=== PATIENT | male | born 1930 | race Caucasian/White ===

== ENCOUNTER → 2016-11-27 | Outpatient (CLI) | payer MEDICARE, OTHER, MEDICAID ==
[~2016-11-27] MED LIST: CALTRATE 600 +1 TAB PO; DEPAKOTE500 MG PO; FOSAMAX 70MG TA70 MG PO; MOBIC15 MG PO; PREPARATION H30 GM RC; TEGRETOL 2200 MG/TA1 PO; TUSSIN DM 10 M118 ML PO; [UNRECOGNIZED DRUG - OTHER] TP
[2016-11-27 17:09] LABS: BASO % 0.5 % (0.0-2.0); EOS # 0.1 (0.0-0.7); EOS % 0.9 % (0-4.0); HEMATOCRIT 41.7 % (42.0-52.0); LYMPH # 2.5 (1.2-3.4); LYMPH % 30.1 % (20.0-51.0); MEAN CELL VOLUME 95 fl (80.0-100.0); MEAN CORPUSCULAR HEMOGLOBIN 32 pg (27.0-31.0); MEAN CORPUSCULAR HGB CONC 34 g/dl (33.0-37.0); MEAN PLATELET VOLUME 9.7 fl (7.4-10.4); MONO # 0.8 (0.1-0.6); MONO % 9.3 % (1.7-9.3); PLATELET COUNT 331 K/mm3 (130-400); WHITE BLOOD COUNT 8.5 K/mm3 (4.8-10.8)
[2016-11-27 17:10] LABS: ADJUSTED CALCIUM 9.7 mg/dL (8.4-10.2); ALBUMIN 3.6 gm/dL (3.5-5.0); BILIRUBIN,TOTAL 0.4 mg/dL (0.0-1.0); CALCIUM 9.4 mg/dL (8.4-10.2); CARBAMAZEPINE (TEGRETOL) 6.2 ug/mL (4.0-12.0); CREATININE, serum 0.73 mg/dL (0.66-1.25); POTASSIUM 4.3 mmol/L (3.4-5.0); TOTAL PROTEIN 6.3 gm/dL (6.4-8.2)
== END ==
LOC: ZCOL.LAB 16:56
PROVIDERS: Internal Medicine
DX: G40.909 Epilepsy, unspecified, not intractable, without status epilepticus (principal)

== ENCOUNTER → 2017-02-05 | Outpatient (CLI) | payer MEDICARE, OTHER, MEDICAID ==
[~2017-02-05] MED LIST changes: +ASPIRIN 81M81 MG/TA2 PO; +CALCI-MIX500 M1 PO; +COLACE 100100 MG/CAP PO; +GOOD NEIGH1200 MG/15; +MIRALAX PA17 GM/Dose PO; +NEURONTIN600 MG/TAB PO; +NORCO 325 MG-7.1 TAB PO; +PREPARATION H HYDR1% TOP; +PRESERVISIONLUT; +SENOKOT S 50 MG1 TAB PO; +TYLENOL 325MG325 MG PO
[2017-02-05 18:10] LABS: CARBAMAZEPINE (TEGRETOL) 6.8 ug/mL (4.0-12.0)
== END ==
LOC: ZCOL.LAB 17:22
PROVIDERS: Internal Medicine
DX: Z01.89 Encounter for other specified special examinations (principal)

== ENCOUNTER → 2017-02-06 | Outpatient (CLI) | payer MEDICARE, OTHER, MEDICAID ==
[~2017-02-06] MED LIST changes: -ASPIRIN 81M81 MG/TA2 PO; -CALCI-MIX500 M1 PO; -COLACE 100100 MG/CAP PO; -GOOD NEIGH1200 MG/15; -MIRALAX PA17 GM/Dose PO; -NEURONTIN600 MG/TAB PO; -NORCO 325 MG-7.1 TAB PO; -PREPARATION H HYDR1% TOP; -PRESERVISIONLUT; -SENOKOT S 50 MG1 TAB PO; -TYLENOL 325MG325 MG PO
== END ==
LOC: ZCOL.LAB 09:41
DX: G40.909 Epilepsy, unspecified, not intractable, without status epilepticus (principal)

== ENCOUNTER → 2017-09-16 | Outpatient (CLI) | payer MEDICARE, OTHER, MEDICAID ==
[~2017-09-16] MED LIST changes: +ASPIRIN 81M81 MG/TA2 PO; +CALCI-MIX500 M1 PO; +COLACE 100100 MG/CAP PO; +GOOD NEIGH1200 MG/15; +MIRALAX PA17 GM/Dose PO; +NEURONTIN600 MG/TAB PO; +NORCO 325 MG-7.1 TAB PO; +PREPARATION H HYDR1% TOP; +PRESERVISIONLUT; +SENOKOT S 50 MG1 TAB PO; +TYLENOL 325MG325 MG PO
[2017-09-16 14:02] LABS: CARBAMAZEPINE (TEGRETOL) 7.2 ug/mL (4.0-12.0)
[2017-09-16 14:03] LABS: VALPROIC ACID (DEPAKENE) 76.3 ug/mL (50.0-100.0)
== END ==
LOC: ZCOL.LAB 13:21
PROVIDERS: Internal Medicine
DX: G98.8 Other disorders of nervous system (principal); M62.81 Muscle weakness (generalized); G63 Polyneuropathy in diseases classified elsewhere; E73.9 Lactose intolerance, unspecified

== ENCOUNTER → 2017-12-15 | Outpatient (REF) | LOC: ZCOL.LAB 09:53 | DX: M81.0 Age-related osteoporosis without current pathological fracture (principal) ==

== ENCOUNTER → 2018-01-14 | Outpatient (REF) ==
[2018-01-14 14:14] LABS: BASO # 0.1 (0.0-0.2); BASO % 0.7 % (0.0-2.0); EOS # 0.3 (0.0-0.7); EOS % 3.7 % (0-4.0); GRAN # 3.7 (1.4-6.5); GRAN % 54.4 % (42.2-75.2); HEMATOCRIT 39.8 % (42.0-52.0); HEMOGLOBIN 12.9 g/dl (13.5-18.0); LYMPH # 2.2 (1.2-3.4); LYMPH % 32.3 % (20.0-51.0); MEAN CELL VOLUME 96 fl (80.0-100.0); MEAN CORPUSCULAR HEMOGLOBIN 31 pg (27.0-31.0); MEAN CORPUSCULAR HGB CONC 32 g/dl (33.0-37.0); MEAN PLATELET VOLUME 10.6 fl (7.4-10.4); MONO # 0.6 (0.1-0.6); MONO % 8.6 % (1.7-9.3); PLATELET COUNT 310 K/mm3 (130-400); RED BLOOD COUNT 4.13 M/mm3 (4.20-5.60); REDCELL DISTRIBUTION WIDTH-CV 13.5 % (11.5-14.5)
[2018-01-14 14:31] LABS: ALBUMIN 3.3 gm/dL (3.5-5.0); BILIRUBIN,TOTAL 0.4 mg/dL (0.0-1.0); CALCIUM 8.6 mg/dL (8.4-10.2); CREATININE, serum 0.48 mg/dL (0.66-1.25); POTASSIUM 4.3 mmol/L (3.4-5.0); TOTAL PROTEIN 6.2 gm/dL (6.4-8.2)
[2018-01-14 14:57] LABS: THYROID STIMULATING HORMONE 2.91 uIU/mL (0.465-4.680)
== END ==
LOC: ZCOL.LAB 13:47
PROVIDERS: Internal Medicine
DX: G98.8 Other disorders of nervous system (principal); Z86.718 Personal history of other venous thrombosis and embolism

== ENCOUNTER → 2018-04-02 | Outpatient (CLI) | payer MEDICARE, OTHER, MEDICAID ==
[2018-04-02 10:38] LABS: CARBAMAZEPINE (TEGRETOL) 5.6 ug/mL (4.0-12.0)
[2018-04-02 10:39] LABS: VALPROIC ACID (DEPAKENE) 96.5 ug/mL (50.0-100.0)
== END ==
LOC: ZCOL.LAB 09:24
PROVIDERS: Internal Medicine
DX: M81.0 Age-related osteoporosis without current pathological fracture (principal); M72.9 Fibroblastic disorder, unspecified; G40.901 Epilepsy, unspecified, not intractable, with status epilepticus

== ENCOUNTER → 2018-04-06 | Outpatient (CLI) | payer MEDICARE, OTHER, MEDICAID | LOC: ZCOL.LAB 13:49 | DX: G40.901 Epilepsy, unspecified, not intractable, with status epilepticus (principal) ==

== ENCOUNTER → 2018-06-04 | Outpatient (CLI) | payer MEDICARE, OTHER, MEDICAID ==
[2018-06-04 13:42] LABS: ALBUMIN 3.6 gm/dL (3.5-5.0); BILIRUBIN,TOTAL 0.4 mg/dL (0.0-1.0); CALCIUM 9.3 mg/dL (8.4-10.2); CREATININE, serum 0.5 mg/dL (0.66-1.25); POTASSIUM 3.9 mmol/L (3.4-5.0); TOTAL PROTEIN 6.4 gm/dL (6.4-8.2)
[2018-06-04 14:12] LABS: THYROID STIMULATING HORMONE 1.91 uIU/mL (0.465-4.680)
== END ==
LOC: ZCOL.LAB 11:53
PROVIDERS: Internal Medicine
DX: F03.90 Unspecified dementia, unspecified severity, without behavioral disturbance, psychotic disturbance, mood disturbance, and anxiety (principal); G40.901 Epilepsy, unspecified, not intractable, with status epilepticus

== ENCOUNTER → 2018-06-09 | Outpatient (REF) ==
[2018-06-09 10:58] LABS: BASO # 0.1 (0.0-0.2); BASO % 0.5 % (0.0-2.0); EOS # 0.1 (0.0-0.7); GRAN # 9.1 (1.4-6.5); GRAN % 69.7 % (42.2-75.2); HEMATOCRIT 41.9 % (42.0-52.0); HEMOGLOBIN 13.7 g/dl (13.5-18.0); LYMPH # 2.7 (1.2-3.4); LYMPH % 20.5 % (20.0-51.0); MEAN CELL VOLUME 95 fl (80.0-100.0); MEAN CORPUSCULAR HEMOGLOBIN 31 pg (27.0-31.0); MEAN CORPUSCULAR HGB CONC 33 g/dl (33.0-37.0); MEAN PLATELET VOLUME 9.4 fl (7.4-10.4); MONO % 7.5 % (1.7-9.3); PLATELET COUNT 405 K/mm3 (130-400); RED BLOOD COUNT 4.41 M/mm3 (4.20-5.60); REDCELL DISTRIBUTION WIDTH-CV 13.3 % (11.5-14.5)
== END ==
LOC: ZCOL.LAB 10:49
PROVIDERS: Internal Medicine
DX: Z01.89 Encounter for other specified special examinations (principal)

== ENCOUNTER → 2018-06-19 | Outpatient (CLI) | payer MEDICARE, OTHER, MEDICAID | LOC: COL.LAB 09:48 | DX: G40.901 Epilepsy, unspecified, not intractable, with status epilepticus (principal) ==

== ENCOUNTER → 2018-07-06 | Outpatient (CLI) | payer MEDICARE, OTHER, MEDICAID | LOC: COL.LAB 09:39 | DX: G40.901 Epilepsy, unspecified, not intractable, with status epilepticus (principal) ==

== ENCOUNTER → 2018-09-01 | Outpatient (CLI) | payer MEDICARE, OTHER, MEDICAID | LOC: ZCOL.LAB 11:28 | DX: G40.901 Epilepsy, unspecified, not intractable, with status epilepticus (principal) ==

== ENCOUNTER → 2018-10-01 | Outpatient (CLI) | payer MEDICARE, OTHER, MEDICAID | LOC: COL.LAB 09:08 | DX: G40.901 Epilepsy, unspecified, not intractable, with status epilepticus (principal); F03.90 Unspecified dementia, unspecified severity, without behavioral disturbance, psychotic disturbance, mood disturbance, and anxiety; M62.81 Muscle weakness (generalized) ==

== ENCOUNTER 2018-10-20 09:11 | Emergency (ER) | payer MEDICARE, OTHER, MEDICAID ==
[~2018-10-20] VITALS: Ht 167.6 cm; Wt 72.7 kg
[2018-10-20 09:16] VITALS: TEMP 97.3
[2018-10-20 09:35] LABS: BASO # 0.1 (0.0-0.2); BASO % 0.5 % (0.0-2.0); EOS # 0.1 (0.0-0.7); EOS % 1.1 % (0-4.0); GRAN # 7.5 (1.4-6.5); GRAN % 69.7 % (42.2-75.2); HEMATOCRIT 39.8 % (42.0-52.0); HEMOGLOBIN 13.8 g/dl (13.5-18.0); LYMPH # 2.4 (1.2-3.4); MEAN CELL VOLUME 89 fl (80.0-100.0); MEAN CORPUSCULAR HEMOGLOBIN 31 pg (27.0-31.0); MEAN CORPUSCULAR HGB CONC 35 g/dl (33.0-37.0); MEAN PLATELET VOLUME 8.5 fl (7.4-10.4); MONO # 0.7 (0.1-0.6); MONO % 6.1 % (1.7-9.3); PLATELET COUNT 334 K/mm3 (130-400); RED BLOOD COUNT 4.45 M/mm3 (4.20-5.60); REDCELL DISTRIBUTION WIDTH-CV 12.8 % (11.5-14.5)
[2018-10-20 09:40] LABS: INR 1.1 (0.8-3.0); PROTHROMBIN TIME 12.7 SECONDS (9.7-12.8)
[2018-10-20 09:48] LABS: ALANINE AMINOTRANSFERASE 16 U/L (21-72); ALKALINE PHOSPHATASE 117 U/L (50-136); ANION GAP 13 mmol/L (7-16); AST,SGOT 24 U/L (15-37); BILIRUBIN,TOTAL 0.3 mg/dL (0.0-1.0); BLOOD UREA NITROGEN 12 mg/dL (9-20); CARBON DIOXIDE 25 mmol/L (22-30); CHLORIDE 93 mmol/L (98-107); CREATININE, serum 0.41 (0.66-1.25); GLUCOSE 114 mg/dL (74-106); POTASSIUM 4.1 mmol/L (3.4-5.0); SODIUM 131 mmol/L (137-145)
[2018-10-20 10:02] LABS: PROLACTIN 37.6 ng/mL (3.7-17.9); TROPONIN-I < 0.012 ng/mL (0.000-0.035)
[2018-10-20 13:58] VITALS: BP 129/79; PULSE 95
== END 2018-10-20 14:18 | disposition home or self-care (01) ==
LOC: COL.ER 09:11
PROVIDERS: Emergency Medicine
DX: R53.1 Weakness (principal); F03.90 Unspecified dementia, unspecified severity, without behavioral disturbance, psychotic disturbance, mood disturbance, and anxiety; G40.909 Epilepsy, unspecified, not intractable, without status epilepticus; Z79.82 Long term (current) use of aspirin
CPT/HCPCS: J7030

== ENCOUNTER → 2018-10-28 | Outpatient (CLI) | payer MEDICARE, OTHER, MEDICAID | LOC: ZCOL.LAB 16:07 | DX: G40.901 Epilepsy, unspecified, not intractable, with status epilepticus (principal) ==

== ENCOUNTER → 2018-11-04 | Outpatient (CLI) | payer MEDICARE, OTHER, MEDICAID ==
[2018-11-04 13:20] LABS: CARBAMAZEPINE (TEGRETOL) 9.3 ug/mL (4.0-12.0)
[2018-11-04 13:24] LABS: VALPROIC ACID (DEPAKENE) < 10.0 ug/mL (50.0-100.0)
== END ==
LOC: COL.LAB 12:08
PROVIDERS: Internal Medicine
DX: Z51.81 Encounter for therapeutic drug level monitoring (principal); E72.20 Disorder of urea cycle metabolism, unspecified; E55.9 Vitamin D deficiency, unspecified; T42.1X4A Poisoning by iminostilbenes, undetermined, initial encounter

== ENCOUNTER 2019-02-01 21:14 | Inpatient (IN) | payer MEDICARE, OTHER, MEDICAID ==
[~2019-02-01] VITALS: Ht 167.6 cm; Wt 83.4 kg
[2019-02-01 21:45] LABS: ARTERIAL BLD GAS O2 SATURATION 91.6 % (92-100); ARTERIAL BLOOD GAS BASE EXCESS -0.3 (-2-2); ARTERIAL BLOOD GAS HCO3 22.1 meq/L (22-26); ARTERIAL BLOOD GAS PCO2 29.6 mmHg (35-45); ARTERIAL BLOOD GAS PO2 59.1 mmHg (80-100); ARTERIAL BLOOD GAS pH 7.49 (7.35-7.45)
[2019-02-01] MEDS ORDERED: BENADRYL25 M2 PO (21:59)
[2019-02-01] MEDS ORDERED: HORIZANT600 MG PO (22:00)
[2019-02-01 22:02] LABS: HEMOGLOBIN 11.5 g/dl (13.5-18.0); MEAN CELL VOLUME 88 fl (80.0-100.0); MEAN CORPUSCULAR HEMOGLOBIN 30 pg (27.0-31.0); MEAN CORPUSCULAR HGB CONC 34 g/dl (33.0-37.0); MEAN PLATELET VOLUME 8.8 fl (7.4-10.4); PLATELET COUNT 352 K/mm3 (130-400); REDCELL DISTRIBUTION WIDTH-CV 14.1 % (11.5-14.5)
[2019-02-01] MEDS ORDERED: ERGOCALCIFER50000 IU PO (22:05)
[2019-02-01] MEDS ORDERED: CORRECTIVE LAXAT5 MG PO (22:07)
[2019-02-01] MEDS ORDERED: CALAMINE 180 M180 ML TP (22:08)
[2019-02-01] MEDS ORDERED: SENOKOT S 50 MG1 TAB PO (22:08)
[2019-02-01] MEDS ORDERED: MIRALAX PA17 GM/Dose PO (22:08)
[2019-02-01 22:09] LABS: INR 1.2 (0.8-3.0); PROTHROMBIN TIME 13.8 SECONDS (9.7-12.8)
[2019-02-01] MEDS ORDERED: GERI-TUSSI100 MG/5 M PO (22:09)
[2019-02-01] MEDS ORDERED: FOSAMAX 70MG TA70 MG PO (22:09)
[2019-02-01 22:14] LABS: ALBUMIN 3.6 gm/dL (3.5-5.0); BILIRUBIN,TOTAL 0.5 mg/dL (0.0-1.0); CALCIUM 8.7 mg/dL (8.4-10.2); CREATININE, serum 0.42 (0.66-1.25); HEMATOCRIT 33.5 % (42.0-52.0); TOTAL PROTEIN 7.1 gm/dL (6.4-8.2)
[2019-02-01 22:24] LABS: TROPONIN-I 0.012 ng/mL (0.000-0.035)
[2019-02-01 22:28] LABS: LYMPHOCYTE 9 % (20.0-51.0); METAMYELOCYTE 1 % (0-0); NEUTROPHILS 84 % (42.0-75.2)
[2019-02-01 22:29] LABS: PLATELET ESTIMATE NORMAL (NORMAL)
[2019-02-02] VITALS (7 sets, daily range): BP systolic 104–135; BP diastolic 52–67; PULSE 82–114; TEMP 98–100.9
--- NOTE | 2019-02-02 00:05 | NUR ---
Admitted to medical floor from ER with DX; pneumonia, pt alert, pleasant, oriented to person, place- from [facility]-- has o2 at 6L/nc, sats 93%, lung sounds with coarse crackles throughout- wet cough_pt states unable to cough anything up- Kae WILKINS here to see pt and write orders, pt is resting between interruptions- was incontinent of urine- changed- bed alarm on- fall precautions-
[2019-02-02] MEDS ORDERED: CALCIUM CARB500 MG PO (00:25)
[2019-02-02] MEDS ORDERED: DULCOLAX TAB5 MG PO (00:29)
[2019-02-02] MEDS ORDERED: EUCERIN1 CRE TOP (00:30)
[2019-02-02 02:44] LABS: ARTERIAL BLD GAS O2 SATURATION 96.2 % (92-100); ARTERIAL BLD GAS TCO2 CT 22.4; ARTERIAL BLOOD GAS HCO3 21.4 meq/L (22-26); ARTERIAL BLOOD GAS PCO2 31.9 mmHg (35-45); ARTERIAL BLOOD GAS PO2 86.4 mmHg (80-100); ARTERIAL BLOOD GAS pH 7.44 (7.35-7.45)
[2019-02-02 04:19] LABS: COLLECTION METHOD CLEAN CATCH
[2019-02-02 04:29] LABS: MUCOUS Present /lpf; PH 5 (5-8); SQUAMOUS EPITHELIAL None Seen /hpf; URINE APPEARANCE Cloudy; URINE BACTERIA None Seen /hpf; URINE BILIRUBIN Negative (NEGATIVE); URINE BLOOD Negative (NEGATIVE); URINE COLOR Amber; URINE GLUCOSE Negative (NEGATIVE); URINE KETONE Trace (NEGATIVE); URINE LEUKOCYTE ESTERASE 3+ (NEGATIVE); URINE NITRATE Negative (NEGATIVE); URINE PROTEIN(semi-quant) 1+ (NEGATIVE); URINE UROBILINOGEN Negative (NEGATIVE)
--- NOTE | 2019-02-02 05:32 | NUR ---
Has been resting well for the past 3-4 hours- tolerated bipap till about 0430, was anxious and pulling off so took off and has o2 mask with 6L/nc. VSS. IV fluids continue at 75cc/hr. Was incontinent of urine but was able to catch some in urinal so sent down to lab for Tests that were ordered. Denies pain. More confused during the night -
[2019-02-02 06:11] LABS: MEAN CELL VOLUME 90 fl (80.0-100.0); MEAN CORPUSCULAR HGB CONC 33 g/dl (33.0-37.0); MEAN PLATELET VOLUME 8.7 fl (7.4-10.4); PLATELET COUNT 326 K/mm3 (130-400); REDCELL DISTRIBUTION WIDTH-CV 14.2 % (11.5-14.5)
[2019-02-02 06:13] LABS: HEMATOCRIT 29.7 % (42.0-52.0); HEMOGLOBIN 9.9 g/dl (13.5-18.0); MEAN CORPUSCULAR HEMOGLOBIN 30 pg (27.0-31.0)
--- NOTE | 2019-02-02 06:15 | NUR ---
Vancomycin Initial Dosing Pharmacy Note Ordering provider: Kemal Rosales MD Indication/duration: Pneumonia, 7 days LABS: WBC 19.8, SCr 0.42, CrCl~60, GFR 193 Recommendation: Vancomycin 1.5 gm IV q12h. Pharmacy will continue to monitor and check a Vancomycin trough on 02/04/19. Loading dose: 1.5 grams Maintenance dose: 1.5 grams every 12 hours Trough goal: 15-20 ug/mL
[2019-02-02 06:25] LABS: ALBUMIN 3.1 gm/dL (3.5-5.0); BILIRUBIN,TOTAL 0.6 mg/dL (0.0-1.0); CALCIUM 8.1 mg/dL (8.4-10.2); CREATININE, serum 0.43 (0.66-1.25); POTASSIUM 3.6 mmol/L (3.4-5.0); TOTAL PROTEIN 6.2 gm/dL (6.4-8.2)
[2019-02-02 06:40] LABS: LYMPHOCYTE 14 % (20.0-51.0); NEUTROPHILS 82 % (42.0-75.2); PLATELET ESTIMATE NORMAL (NORMAL)
--- NOTE | 2019-02-02 11:18 | NUR ---
YARON met with the patient to discuss discharge plan. The patient resides at [facility] for long-term care. He states that he utilizes a wheelchair and oxygen at the facility. The patient's PCP was Dr. Gibson, but he states that he will be switching to Dr. Nicole Newman. The patient does not have advanced directives in EMR, but he states that he believes he has them completed and this his sister, Rodríguez Rust (ph#[phone]), is his DPOA-HC. He states that Rodríguez lives in [place]. The patient reports that he plans to return back to [facility] upon discharge. YARON presented and explained the Patient Choice Form to the Patient. The patient verbalized understanding, signed, and he declined a copy. YARON contacted and requested a copy of the patient's DPOA-HC from Estrella at [facility]. YARON faxed updates to Saad at [facility]. YARON to continue to follow.
--- NOTE | 2019-02-02 18:33 | NUR ---
PT HAD UNEVENTFUL DAY. RECIEVED IV ABX WITHOUT ISSUE. ECHO WAS DONE THIS AM, REPORT ON CHART. NO ISSUES OR CONSERN VOICED. PLEASENT AND COOPERATIVE WITH CARES.
[2019-02-03] VITALS (16 sets, daily range): BP systolic 114–140; BP diastolic 52–77; PULSE 58–110; TEMP 97.6–99.1
[2019-02-03 06:09] LABS: HEMOGLOBIN 10.4 g/dl (13.5-18.0); MEAN CELL VOLUME 90 fl (80.0-100.0); MEAN CORPUSCULAR HEMOGLOBIN 30 pg (27.0-31.0); MEAN CORPUSCULAR HGB CONC 34 g/dl (33.0-37.0); MEAN PLATELET VOLUME 9.1 fl (7.4-10.4); PLATELET COUNT 379 K/mm3 (130-400); RED BLOOD COUNT 3.43 M/mm3 (4.20-5.60); REDCELL DISTRIBUTION WIDTH-CV 14.5 % (11.5-14.5)
[2019-02-03 06:21] LABS: CALCIUM 8.1 mg/dL (8.4-10.2); CREATININE, serum 0.4 (0.66-1.25); POTASSIUM 3.7 mmol/L (3.4-5.0)
[2019-02-03 06:32] LABS: HEMATOCRIT 30.9 % (42.0-52.0)
--- NOTE | 2019-02-03 07:23 | NUR ---
Pt had a miserable night. Increased audible wheezing. Occas non-productive cough. RT put his Bipap on at HS but pt was restless since that time. Pulled on mask and hose and would get upset that the bipap would not work right. This morning, he appears to be tired. O2 on at 8L/NC per RT. Rest in bed with head slightly elevated. Call light within reach. IV antibiotics given thru INT in L FA with no problems. Report given to day shift.
[2019-02-03 09:38] LABS: BAND 9 % (0-10); EOSINOPHIL 1 % (0-4); LYMPHOCYTE 4 % (20.0-51.0); METAMYELOCYTE 1 % (0-0); NEUTROPHILS 78 % (42.0-75.2)
[2019-02-03 09:39] LABS: PLATELET ESTIMATE NORMAL (NORMAL)
--- NOTE | 2019-02-03 13:17 | NUR ---
PATIENT HAS SECRETIONS IN UPPER AIRWAY BUT HAS STONG COUGH, SATS 85-87 ON 8LPM VIA OXYMASK.
--- NOTE | 2019-02-03 13:36 | NUR ---
RT ASSESSED PT O2 AND GAVE BREATHING TX. PT O2 SATS REMAINED IN THE UPPER 80'S. KIRILL ABGS AND PLACED PT ON BIPAP AT THIS TIME. PT COOPERATIVE AND VOICED UNDERSTANDING. WILL MONITOR PT
--- NOTE | 2019-02-03 13:38 | NUR ---
YARON contacted and faxed updates to Saad at [facility]. YARON to continue to follow.
--- NOTE | 2019-02-03 14:10 | NUR ---
PT TOLERATING BIPAP WELL AT THIS TIME. NOTIFIED DR. DOWNEY OF PT BEING ON BIPAP AND GAVE HIM THE ABG RESULTS. NO NEW ORDERS AT THIS TIME. WILL CONTINUE TO MONITOR
[2019-02-03 14:13] LABS: ARTERIAL BLD GAS O2 SATURATION 86.4 % (92-100); ARTERIAL BLD GAS TCO2 CT 26.3; ARTERIAL BLOOD GAS BASE EXCESS 3.5 (-2-2); ARTERIAL BLOOD GAS HCO3 25.4 meq/L (22-26); ARTERIAL BLOOD GAS pH 7.55 (7.35-7.45)
[2019-02-03 14:16] LABS: ARTERIAL BLOOD GAS PO2 47.9 mmHg (80-100)
[2019-02-03 15:51] LABS: ARTERIAL BLD GAS O2 SATURATION 92.9 % (92-100); ARTERIAL BLOOD GAS BASE EXCESS 0.9 (-2-2); ARTERIAL BLOOD GAS HCO3 23.1 meq/L (22-26); ARTERIAL BLOOD GAS PO2 62.2 mmHg (80-100); ARTERIAL BLOOD GAS pH 7.52 (7.35-7.45)
--- NOTE | 2019-02-03 15:51 | NUR ---
PT ASLEEEP WITH BIPAP ON AT THIS TIME. ABG'S WHERE REDRAWN AFTER PT WEARING BIPAP FOR 2 HOURS TO SEE IF ABG'S CLOSER/WNL.
--- NOTE | 2019-02-03 17:30 | NUR ---
PATIENT RESTING COMFORTABLY, BIPAP ON NOW SINCE ABOUT 1330. ABG SHOWS IMPROVEMENT IN PAO2, AND SATS 93% UP FROM 84% ON 10 LPM VIA OXYMASK. WILL CONTINUE TO MONITOR.
--- NOTE | 2019-02-03 17:49 | NUR ---
PT AWOKE FROM NAP AND REQUESTED TO BE OFF BIPAP. THIS NURSE CALLED RT, PT WAS PLACED ON 10L OXIMASK AND SATS 92%.
--- NOTE | 2019-02-03 17:57 | NUR ---
BIPAP OFF AT 1720 PATIENT ON 10 LPM VIA OXYMASK WITH SATURATION OF 92%.
--- NOTE | 2019-02-03 22:34 | NUR ---
When giving HS medications, this nurse noticed patient to be very diaphoretic. VS: 97.6 120 132/82 34 96% on BIPAP. Telemetry shows sinus tachycardia. Asked if patient was having chest pain, and stated he was, but "just a little." Continues to have difficulty breathing with BIPAP. Called to [facility]. New orders received. Called respiratory to obtain EKG and ABGs stat. Called lab to obtain Troponin stat. Given 1 mg Morphine IV per orders.
[2019-02-03 22:57] LABS: ARTERIAL BLD GAS O2 SATURATION 96.3 % (92-100); ARTERIAL BLD GAS TCO2 CT 27.2; ARTERIAL BLOOD GAS BASE EXCESS 3.7 (-2-2); ARTERIAL BLOOD GAS HCO3 26.2 meq/L (22-26); ARTERIAL BLOOD GAS PCO2 32.9 mmHg (35-45); ARTERIAL BLOOD GAS PO2 82.1 mmHg (80-100); ARTERIAL BLOOD GAS pH 7.52 (7.35-7.45)
[2019-02-04 01:58] LABS: BASO # 0.1 (0.0-0.2); BASO % 0.3 % (0.0-2.0); EOS % 0.2 % (0-4.0); GRAN # 14.9 (1.4-6.5); GRAN % 78.4 % (42.2-75.2); HEMOGLOBIN 10.6 g/dl (13.5-18.0); LYMPH # 1.9 (1.2-3.4); LYMPH % 10.2 % (20.0-51.0); MEAN CELL VOLUME 90 fl (80.0-100.0); MEAN CORPUSCULAR HEMOGLOBIN 30 pg (27.0-31.0); MEAN CORPUSCULAR HGB CONC 34 g/dl (33.0-37.0); MEAN PLATELET VOLUME 8.9 fl (7.4-10.4); MONO # 1.3 (0.1-0.6); MONO % 6.6 % (1.7-9.3); PLATELET COUNT 413 K/mm3 (130-400); RED BLOOD COUNT 3.51 M/mm3 (4.20-5.60); REDCELL DISTRIBUTION WIDTH-CV 14.5 % (11.5-14.5)
[2019-02-04 02:02] LABS: HEMATOCRIT 31.6 % (42.0-52.0)
[2019-02-04 02:09] LABS: ANION GAP 9 mmol/L (7-16); BLOOD UREA NITROGEN 17 mg/dL (9-20); CALCIUM 8.7 mg/dL (8.4-10.2); CARBON DIOXIDE 26 mmol/L (22-30); CHLORIDE 100 mmol/L (98-107); CREATININE, serum 0.49 (0.66-1.25); GLUCOSE 126 mg/dL (74-106); POTASSIUM 3.9 mmol/L (3.4-5.0); SODIUM 135 mmol/L (137-145)
[2019-02-04 02:25] LABS: TROPONIN-I < 0.012 ng/mL (0.000-0.035)
[2019-02-04 02:52] VITALS: BP 130/64; PULSE 96; TEMP 98.8
--- NOTE | 2019-02-04 08:16 | NUR ---
Pt has had a rough night. Sats drop when bipap is taken off or when he is moved from side to side to change bedding. IV infiltrated in L FA and new site started in R wrist with #20 on third attempt. Top set of dentures loose in pt mouth. RT aware of the pt teeth. Call light in reach.
--- NOTE | 2019-02-04 08:27 | NUR ---
Pt back from procedure with mom at bedside. Pt A&O, VSS, on post ops. Pt will go down to radiology in about 30 min.
[2019-02-04 08:48] VITALS: BP 134/68; PULSE 105; TEMP 98
--- NOTE | 2019-02-04 09:14 | NUR ---
SW attempted to contact and update the patient's sister, Rodríguez Rust ([phone]). SW left a voicemail and will continue to follow.
--- NOTE | 2019-02-04 09:36 | NUR ---
Morning medications administered per JUL. Pt currently having PICC line placed.
--- NOTE | 2019-02-04 10:46 | NUR ---
YARON attended clinical rounds. The patient remains on a bipap. The patient's sister, Fanta, then contacted YARON during rounds. YARON updated Fanta. Fanta confirmed that the plan for the patient is to return back to [facility] upon discharge and that she is the patient's DPOA-HC. Fanta plans to email the patient's DPOA-HC to YARON. YARON to fax updates to [facility] and will continue to follow.
--- NOTE | 2019-02-04 11:17 | NUR ---
Vancomycin Follow-up Pharmacy Note Current regimen: Vancomcyin 1.5 gm IV q12h Vancomycin trough: 10.62 Adjustments: Vancomycin trough subtherapeutic for goal of ~15-20 for PNA. Will increase Vancomcyin to 1.5 gm IV q8h and check trough prior to 4th new dose on 02/05/19. Pharmacy will continue to monitor.
[2019-02-04 12:27] VITALS: BP 122/60; PULSE 93; TEMP 99
--- NOTE | 2019-02-04 12:40 | NUR ---
Pt assessment completed and charted. Pt has PICC line in place, both lines flush with good blood return. Vanc trough drawn prior to Vanc administration. This nurse contacted pharmacy in regards to administration. Dose ok'd to give. Pharmacy to edit next dose instructions. Pt denies chest pain, dizziness, N/V. Pt SOB. Pt on bipap this morning when this nurse resumed cares. RT gave breathing tx, took pt off bipap and placed 10L oxymask to give pt break. pt satting mid 90s. Pt assisted in eating by aide. No other concerns voiced at this time. Call light within reach.
--- NOTE | 2019-02-04 14:50 | NUR ---
SW received the patient's DPOA-HC, via email. SW placed in the patient's chart. The patient's DPOA-HC is his sister, Rodríguez Rust, and the alternate is Taz Rust (ph#[phone]).
[2019-02-04 16:49] VITALS: BP 127/70; PULSE 93; TEMP 97.2
--- NOTE | 2019-02-04 17:17 | NUR ---
Pt sitting in recliner, dinner ordered per pt. Pt on 10L oxymask, satting at 98%. Denies pain or other concerns at this time. Zosyn running in PICC per MAR with no complications. Call light within reach.
[2019-02-04 19:36] VITALS: BP 111/51; PULSE 104; TEMP 99.1
--- NOTE | 2019-02-04 20:45 | NUR ---
Patient assessed at this time. Alert and oriented x 4. Denies having pain and discomfort. Double lumen PICC to E. Both ports flushed. Dressing to area is CDI. Patient assisted from recliner to bed with two assist. Very unsteady pivot transfers. Shaking/tremors present. On oxygen at 10 L/min via oxymask. Reports SOB has gotten better. Denies SOB and dyspnea at rest. LS coarse crackles throughout. HRR. Telemetry monitoring in place. BSAx4. Abdomen soft and non-tender. 2+ edema BLE. Patient was incontinent of bowel and bladder. Staff assisted with changing and perineal hygiene care. Voices no questions, needs, or concerns at this time. Resting in bed with call light within reach.
[2019-02-04 23:38] VITALS: BP 129/72; PULSE 99; TEMP 100.8
[2019-02-05 03:02] VITALS: BP 129/62; PULSE 101; TEMP 99.4
--- NOTE | 2019-02-05 05:26 | NUR ---
Patient has been wearing BIPAP throughout the night. Has voiced no complaints of pain or discomfort. Voices no questions, needs, or concerns. Continues on IV antibiotics via PICC to LUE. Resting in bed with eyes closed at this time. Call light is within reach.
[2019-02-05 06:19] LABS: BASO % 0.2 % (0.0-2.0); EOS # 0.2 (0.0-0.7); EOS % 0.8 % (0-4.0); GRAN # 15.2 (1.4-6.5); GRAN % 84.6 % (42.2-75.2); HEMOGLOBIN 10.2 g/dl (13.5-18.0); LYMPH # 1.1 (1.2-3.4); LYMPH % 5.9 % (20.0-51.0); MEAN CELL VOLUME 91 fl (80.0-100.0); MEAN CORPUSCULAR HEMOGLOBIN 30 pg (27.0-31.0); MEAN CORPUSCULAR HGB CONC 33 g/dl (33.0-37.0); MEAN PLATELET VOLUME 9.4 fl (7.4-10.4); MONO # 0.9 (0.1-0.6); MONO % 4.7 % (1.7-9.3); PLATELET COUNT 431 K/mm3 (130-400); RED BLOOD COUNT 3.45 M/mm3 (4.20-5.60); REDCELL DISTRIBUTION WIDTH-CV 14.6 % (11.5-14.5)
[2019-02-05 06:21] LABS: CALCIUM 8.7 mg/dL (8.4-10.2); CREATININE, serum 0.42 (0.66-1.25); POTASSIUM 3.5 mmol/L (3.4-5.0)
[2019-02-05 06:28] LABS: HEMATOCRIT 31.4 % (42.0-52.0)
--- NOTE | 2019-02-05 07:58 | NUR ---
Pt assessment completed and charted. Student nurse Jose is caring for patient this morning w/ instructor. Morning medications administered per MAR by student nurse and instructor. Pt sitting up in bed eating breakfast. Pt on 10L oxymask. Denies chest pain, dizziness, N/V. Voices no concerns at this time. Call light within reach.
[2019-02-05 08:03] VITALS: BP 122/101; PULSE 95; TEMP 97.4
--- NOTE | 2019-02-05 11:17 | NUR ---
Vancomycin Follow-up Pharmacy Note Current regimen: 1.5 g IV q8h Vancomycin trough: 33.23 Adjustments: hold vancomycin until 0700 on 02/06/19, restart at 1.25 g IV q12h, recheck trough on 02/07/19 at 0630
--- NOTE | 2019-02-05 11:30 | NUR ---
Critical value Alice burr called to this nurse. Pharmacy and hospitalist aware, Alice de la rosa. New dosing and schedule ordered.
[2019-02-05 13:20] VITALS: PULSE 96; TEMP 97.4
[2019-02-05 13:25] VITALS: BP 121/56; PULSE 98
--- NOTE | 2019-02-05 13:45 | NUR ---
Primary nurse was assisted with [id number] patient care by [employer] ADN student Ariana Vale and [facility] instructor Jie Somers RN-.
--- NOTE | 2019-02-05 13:45 | NUR ---
YARON contacted and faxed updates to Saad at [facility]. YARON to continue to follow.
--- NOTE | 2019-02-05 13:59 | NUR ---
Reported off to EARNEST Dyer. Patient sitting up in bed watching tv, call light in reach, bed in lowest position. Paitent voices no other concerns at this time.
[2019-02-05 16:58] VITALS: BP 150/70; PULSE 112; TEMP 98.6
[2019-02-05 19:09] VITALS: BP 121/86; PULSE 109; TEMP 99.5
--- NOTE | 2019-02-05 19:30 | NUR ---
Patient assessed at this time. Alert and oriented, and able to make needs known. Denies having pain and discomfort at this time. Double lumen PICC to RUE. Both ports flushed. Dressing to area is CDI. LS fine crackles in upper lobes, diminished in lower lobes. On oxygen at 10 L/min via oxymask. Reports decreased SOB, and denies at rest, but reports SOB with exertion. Occasional moist cough, unable to produce sputum. wire bender hand in place, sinus tachycardia. Capillary refill less than 3 second. Non-tenting skin turgr. BSAx4. Abdomen soft and non-tender. Complained of too many stools today. Held scheduled Colace and Senokot per request. Scab to top of head on right side. High fall risk precautions are in place. Patient denies having any questions, needs, or concerns at this time. Resting in bed with call light within reach.
[2019-02-06 00:34] VITALS: BP 119/56; PULSE 95; TEMP 99
[2019-02-06 04:21] VITALS: BP 128/63; PULSE 84; TEMP 97.8
--- NOTE | 2019-02-06 06:24 | NUR ---
Patient has been resting in bed with eyes closed. Has denied having pain and discomfort. Voices no questions, needs, or concerns at this time. Continues on IV antibiotics and solu-medrol per MD orders. Has been wearing BIPAP. Resting in bed with call light within reach.
[2019-02-06 06:58] LABS: MEAN CELL VOLUME 91 fl (80.0-100.0); MEAN CORPUSCULAR HGB CONC 33 g/dl (33.0-37.0); MEAN PLATELET VOLUME 8.9 fl (7.4-10.4); PLATELET COUNT 484 K/mm3 (130-400); RED BLOOD COUNT 3.23 M/mm3 (4.20-5.60); REDCELL DISTRIBUTION WIDTH-CV 14.8 % (11.5-14.5)
[2019-02-06 07:10] LABS: CALCIUM 8.9 mg/dL (8.4-10.2); CREATININE, serum 0.76 (0.66-1.25); POTASSIUM 3.5 mmol/L (3.4-5.0)
[2019-02-06 07:40] LABS: HEMATOCRIT 29.3 % (42.0-52.0); HEMOGLOBIN 9.7 g/dl (13.5-18.0); MEAN CORPUSCULAR HEMOGLOBIN 30 pg (27.0-31.0)
--- NOTE | 2019-02-06 08:00 | NUR ---
Initial: Pt laying in bed. No complaints of pain or discomfort. Call light placed within pt reach, and says he does not need anything at this time.
[2019-02-06 08:55] VITALS: BP 132/47; PULSE 97; TEMP 97.5
[2019-02-06 10:12] LABS: LYMPHOCYTE 9 % (20.0-51.0); NEUTROPHILS 84 % (42.0-75.2); PLATELET ESTIMATE INCREASED (NORMAL)
[2019-02-06 11:48] VITALS: BP 124/60; PULSE 96; TEMP 99.2
[2019-02-06 16:13] VITALS: BP 150/73; PULSE 113; TEMP 98.6
--- NOTE | 2019-02-06 18:57 | NUR ---
Report given to Cherie. Pt lying in bed, complains of bipap fitting too snug. RT was coming in to give a breathing treatment and noted they would fix the fit. Pt does not complain of pain or discomfort. States he does not need anything at this time. No other concerns.
[2019-02-06 20:35] VITALS: BP 120/64; PULSE 97; TEMP 98.5
--- NOTE | 2019-02-06 22:00 | NUR ---
Report received from EARNEST Contreras. Patient resting in bed. Denies any pain at this time. Assessment complete. Alert and partially oriented. Currently wearing CPAP machine. 10 L O2. IV patent, vanco started. Denies any further needs at this time. Call light within reach.
[2019-02-07 00:13] VITALS: BP 135/72; PULSE 93; TEMP 98
[2019-02-07 05:13] VITALS: BP 144/62; PULSE 94; TEMP 97.8
--- NOTE | 2019-02-07 05:32 | NUR ---
Patient had uneventful night. Resting in bed. One episode of elevated heart rate, but returned to normal. Patient had bowel movement, chux, brief, and new gown given. Denied pain throughout shift. No further needs at this time. Call light within reach.
--- NOTE | 2019-02-07 06:51 | NUR ---
Report given to EARNEST Lama
[2019-02-07 07:06] LABS: BASO % 0.2 % (0.0-2.0); EOS % 0.2 % (0-4.0); GRAN % 88.5 % (42.2-75.2); LYMPH # 1.4 (1.2-3.4); LYMPH % 6.5 % (20.0-51.0); MEAN CELL VOLUME 92 fl (80.0-100.0); MEAN CORPUSCULAR HGB CONC 32 g/dl (33.0-37.0); MONO # 0.7 (0.1-0.6); MONO % 3.3 % (1.7-9.3); PLATELET COUNT 503 K/mm3 (130-400); REDCELL DISTRIBUTION WIDTH-CV 14.9 % (11.5-14.5)
[2019-02-07 07:13] LABS: HEMATOCRIT 30.3 % (42.0-52.0); HEMOGLOBIN 9.8 g/dl (13.5-18.0); MEAN CORPUSCULAR HEMOGLOBIN 30 pg (27.0-31.0)
[2019-02-07 07:17] VITALS: BP 146/68; PULSE 99; TEMP 98.8
[2019-02-07 07:20] LABS: CALCIUM 9.3 mg/dL (8.4-10.2); CREATININE, serum 0.62 (0.66-1.25); POTASSIUM 3.5 mmol/L (3.4-5.0)
--- NOTE | 2019-02-07 08:28 | NUR ---
Pt assessment complete. Pt is sitting up in bed just finished eating breakfast, pt ate without complications. His breathing is tachy, he reports SOB with movement. Continues on 10L O2 via OM. Pt denies any pain. No N/V. Incontinent cares provided. Seizure and fall precautions in place. No needs at this time. Call light within reach.
--- NOTE | 2019-02-07 11:00 | NUR ---
YARON faxed updates to Saad at [facility]. volunteer services director will continue to follow.
[2019-02-07 12:52] VITALS: BP 138/62; PULSE 95; TEMP 98.1
[2019-02-07 17:46] VITALS: BP 100/52; PULSE 99; TEMP 98.5
--- NOTE | 2019-02-07 19:07 | NUR ---
Pt remained on 10L O2 via OM through the day. Pt extremely intolerant of any movement, quickly desat's. Pt repositioned through the day in bed. Incontinent cares provided. No pain through the day. Refusing dinner tonight. Call light within reach, report given to EARNEST Mcnamara.
[2019-02-07 20:31] VITALS: BP 124/52; PULSE 102; TEMP 97.5
--- NOTE | 2019-02-07 22:30 | NUR ---
Shift assessment complete. Patient in bed, awake. On BIPAP. Partially oriented. Denies pain. Denies further needs at this time. Will continue to monitor.
[2019-02-08 00:17] VITALS: BP 143/68; PULSE 94; TEMP 98.5
[2019-02-08 05:13] VITALS: BP 152/83; PULSE 89; TEMP 97.6
--- NOTE | 2019-02-08 05:27 | NUR ---
Patient in bed, awake. Denies pain. Incontinent of bowel/bladder. Marichuy-care provided, partial linen change. Groin noted to be reddened, painful, and dry. Barrier cream applied. Brief loosely attached d/t excoriated groin. Denies further needs at this time. Will continue to monitor.
[2019-02-08 05:44] LABS: BASO % 0.1 % (0.0-2.0); EOS % 0.1 % (0-4.0); GRAN % 88.9 % (42.2-75.2); LYMPH # 1.3 (1.2-3.4); LYMPH % 7.2 % (20.0-51.0); MEAN CELL VOLUME 93 fl (80.0-100.0); MEAN CORPUSCULAR HGB CONC 32 g/dl (33.0-37.0); MEAN PLATELET VOLUME 9.1 fl (7.4-10.4); MONO # 0.5 (0.1-0.6); MONO % 2.8 % (1.7-9.3); PLATELET COUNT 496 K/mm3 (130-400); RED BLOOD COUNT 3.14 M/mm3 (4.20-5.60); REDCELL DISTRIBUTION WIDTH-CV 15.2 % (11.5-14.5)
[2019-02-08 05:46] LABS: HEMATOCRIT 29.1 % (42.0-52.0); HEMOGLOBIN 9.4 g/dl (13.5-18.0); MEAN CORPUSCULAR HEMOGLOBIN 30 pg (27.0-31.0)
[2019-02-08 05:59] LABS: CALCIUM 9.2 mg/dL (8.4-10.2); CREATININE, serum 0.65 (0.66-1.25); POTASSIUM 3.2 mmol/L (3.4-5.0)
--- NOTE | 2019-02-08 11:06 | NUR ---
YARON attended clinical rounds. The ticket chopper assembler is recommending evaluation for [facility]. YARON then followed up with the patient and discussed this option. The patient reports that he would be agreeable to going to [facility]. YARNO contacted the patient's sister, Rodríguez, and she is supportive of this decision. YARON contacted and faxed a referral to Parvez at [facility]. SW awaiting their screen.
[2019-02-08 11:28] VITALS: BP 137/64; PULSE 92; TEMP 97.9
--- NOTE | 2019-02-08 13:37 | NUR ---
Discussed pt transfer to [facility]. Parvez came to speak with pt, who was agreeable to the transfer. Currently infusing Zosyn and D5 1/2 NS which will continue to run while transferring. Pt has no complaint of pain or discomfort at this time. Will continue to monitor until transfer.
--- NOTE | 2019-02-08 13:39 | NUR ---
Parvez, at [facility], reports that they are able to accept the patient. YARON informed the clinical team and [facility]. Saad at [facility] brought up some of the patient's belongings. YARON updated the patient's sister, Rodríguez. Rodríguez is in agreeance with the patient transferring to [facility]. The patient is to discharge today, 02/08, to [facility]. Transportation was scheduled for 1500, via [facility]. No additional needs at this time.
--- NOTE | 2019-02-08 17:30 | NUR ---
Pt transported to [facility] in [place], [place]. Report given to recieving nurse. Name given to call was Sandra, she did not take the report, name was unintelligable after several times asking. is the number for [facility]. Gave name, status, PICC information, LBM, Meds, recent labs, pt hx, dietary needs, bowel/bladder habits. Gave ext. [phone] for any questions they may have.
== END 2019-02-08 15:40 | DRG 871 ==
LOC: COL.ER 21:14 → MEDICAL 23:02
PROVIDERS: Hospitalist; Nurse Practitioner Family; Physician Assistant; ADMIT Emergency Medicine
PROC: 02HV33Z Insertion of Infusion Device into Superior Vena Cava, Percutaneous Approach (ICD-10-PCS; principal; 2019-02-04)
DX: A41.9 Sepsis, unspecified organism (principal); J96.01 Acute respiratory failure with hypoxia; J18.1 Lobar pneumonia, unspecified organism; N39.0 Urinary tract infection, site not specified; E87.3 Alkalosis; E87.0 Hyperosmolality and hypernatremia; E87.6 Hypokalemia; Z66 Do not resuscitate; I10 Essential (primary) hypertension; F03.90 Unspecified dementia, unspecified severity, without behavioral disturbance, psychotic disturbance, mood disturbance, and anxiety; E04.1 Nontoxic single thyroid nodule; D47.3 Essential (hemorrhagic) thrombocythemia; G62.9 Polyneuropathy, unspecified; B34.8 Other viral infections of unspecified site; R73.9 Hyperglycemia, unspecified; I27.20 Pulmonary hypertension, unspecified; G40.909 Epilepsy, unspecified, not intractable, without status epilepticus; M43.9 Deforming dorsopathy, unspecified; M81.0 Age-related osteoporosis without current pathological fracture; Z79.82 Long term (current) use of aspirin
CPT/HCPCS: 99222-AI; 99232-AI; A4216; C1751; J0456; J0692; J1650; J1940; J2270; J2543; J2920; J3370; J7030; J7050; Q9967